=== PATIENT | female | born 1975 | race Asian ===

== ENCOUNTER 2018-01-28 18:14 | Emergency (ER) | payer BC ==
[~2018-01-28] VITALS: Ht 165.1 cm; Wt 74.8 kg
[2018-01-28 18:33] VITALS: Ht 165.1 cm; Wt 74.8 kg
[2018-01-28 20:14] LABS: BASOPHIL % 0.8 % (0-2); PLATELET COUNT 248 x10^3mcL (130-400); RED CELL DISTRIBUTION WIDTH 12.9 % (11.5-14.5)
[2018-01-28 22:02] VITALS: BP 103/76
== END 2018-01-28 22:02 | disposition home or self-care (01) ==
LOC: ED 18:14
PROVIDERS: Emergency Medicine
PROC: BY49ZZZ Ultrasonography of First Trimester, Single Fetus (ICD-10-PCS; principal; 2018-01-28)
DX: O20.0 Threatened abortion (principal); Z3A.01 Less than 8 weeks gestation of pregnancy
CPT/HCPCS: 36415

== ENCOUNTER 2018-02-07 18:21 | Emergency (ER) | payer BC ==
[~2018-02-07] VITALS: Ht 160 cm; Wt 76.7 kg
[2018-02-07 18:37] VITALS: Ht 160 cm; Wt 76.7 kg
[2018-02-07 22:44] VITALS: BP 92/73
== END 2018-02-07 22:44 | disposition home or self-care (01) ==
LOC: ED 18:21
DX: O26.891 Other specified pregnancy related conditions, first trimester (principal); R10.30 Lower abdominal pain, unspecified; Z88.0 Allergy status to penicillin; Z98.890 Other specified postprocedural states; V49.9XXA Car occupant (driver) (passenger) injured in unspecified traffic accident, initial encounter; Y93.I9 Activity, other involving external motion; Y92.413 State road as the place of occurrence of the external cause; Y99.8 Other external cause status